=== PATIENT | male | born 1980 | race Two or more races ===

== ENCOUNTER → 2022-07-04 15:39 | Outpatient (CLI) | payer BC, SELFPAY ==
--- NOTE | 2022-07-04 15:49 | ECG_ITS ---
APPROVED REPORT Exam: Resting ECG HR:67 bpm ECG Measurements Heart Rate 67 AXES MN 165 P 29 QRSd 82 QRS 14 QT 378 T 13 QTc 394 Conclusion SINUS RHYTHM NORMAL ECG UNCONFIRMED REPORT Electronically signed by : Azar Roblero MD 07/04/2022 17:56:29
--- NOTE | 2022-07-04 16:29 | XR_ITS ---
PROCEDURE INFORMATION: Exam: XR Chest Exam date and time: 07/04/2022 4:44 PM Age: 41 years old Clinical indication: Cough; Additional info: Pre-op testing -- cough TECHNIQUE: Imaging protocol: Radiologic exam of the chest. Views: 2 views. COMPARISON: No relevant prior studies available. FINDINGS: Lungs: Hypoaeration of the lungs which are clear for the degree of inspiration. Pleural spaces: No pleural effusion. No pneumothorax. Heart/Mediastinum: Cardiomediastinal silhouette is normal. Bones/joints: No acute abnormality. IMPRESSION: No acute cardiopulmonary disease.
--- NOTE | 2022-07-04 16:29 | XR_ITS ---
PROCEDURE INFORMATION: Exam: XR Right Foot Complete; Alignment Exam date and time: 07/04/2022 4:44 PM Age: 41 years old Clinical indication: Pain; Foot; Right; Additional info: Foot pain TECHNIQUE: Imaging protocol: Radiologic exam of the right foot. Views: 3 or more views. COMPARISON: No relevant prior studies available. FINDINGS: Bones/joints: No acute fracture or dislocation. Hallux valgus. Plantar enthesophyte noted. Soft tissues: Normal. IMPRESSION: No acute osseous abnormality.
[2022-07-04 17:10] LABS: Basophils # 0.1 K/mm3 (0-0.2); Eosinophils # 0.1 K/mm3 (0.0-0.4); Hematocrit 37.3 % (42.0-52.0); Hemoglobin 12.1 g/dL (14.1-18.0); Lymphocytes # 1.9 K/mm3 (0.7-4.5); Lymphocytes % 32.9 % (10-50); Mean Corpuscular HGB Conc 32.4 g/dL (31.8-35.4); Mean Corpuscular Volume 86.2 fl (80-94); Mean Platelet Volume 7.5 fl (7.4-10.4); Monocytes # 0.3 K/mm3 (0.1-1.0); Monocytes % 4.5 % (1.7-9.3); Neutrophils # 3.5 K/mm3 (1.8-7.8); Neutrophils % 60.6 % (37.0-80.0); Platelet Count 381 K/mm3 (142-424); Red Blood Count 4.32 M/mm3 (4.60-6.20); Red Cell Distribution Width 18.2 % (11.5-17.5); White Blood Count 5.8 K/mm3 (4.8-10.8)
[2022-07-04 17:48] LABS: Alanine Aminotransferase 47 U/L (12-78); Albumin Level 4.4 g/dl (3.5-5.0); Albumin/Globulin Ratio 1.5 (1.1-1.8); Alkaline Phosphatase 70 U/L (38-126); Aspartate Amino Transferase 46 U/L (17-59); Bilirubin,Total 0.3 mg/dl (0.2-1.3); Blood Urea Nitrogen 10 mg/dl (9-20); Calcium 8.5 mg/dl (8.4-10.2); Carbon Dioxide 25 mmol/L (22.0-30.0); Chloride 108 mmol/L (98-107); Estimated Glomerular Filt Rate 148 ml/min (>60); GFR (African American) 179 ML/MIN (>60); Globulin 2.9 g/dL (1.3-3.2); Glucose 92 mg/dl (74-100); Potassium 4.1 mmoL/L (3.5-5.1); Total Protein,Serum 7.3 g/dl (6.3-8.2)
[2022-07-04 18:59] LABS: Anion Gap 7.1 mEq/L (5-15); Sodium 136 mmol/L (136-145)
[2022-07-16 19:15] LABS: 1,25 Dihydroxy Vitamin D 61 pg/mL (.); 1,25-Dihydroxy, Vitamin D-2 52 pg/mL (.); 1,25-Dihydroxy, Vitamin D-3 <10 pg/mL (.)
== END ==
PROVIDERS: Visit Provider Podiatrist
DX: Z01.818 Encounter for other preprocedural examination (principal); M79.671 Pain in right foot
CPT/HCPCS: 36415; 71046; 73630; 80053; 82652; 85025; 93005

== ENCOUNTER 2022-07-27 06:04 | Day surgery (SDC) | payer BC, SELFPAY ==
[2022-07-27] VITALS (10 sets, daily range): BP systolic 128–165; BP diastolic 74–95; PULSE 65–78; RESP 16–18; TEMP 36.4–43; O2SAT 99–100; BMI 35.5
[2022-07-27 06:25] LABS: Urine Pregnancy, HCG Qual. Negative (Negative)
--- NOTE | 2022-07-27 10:08 | P.PN_ITS ---
[facility] Disclaimer: The information contained in this section may have been updated after the patient was seen, as this information can be updated by other users. Surgical History History of bilateral tubal ligation History of section Family History Other No significant family history Social History Smoking Status: Never smoker alcohol intake: never substance use type: denies use current occupational status: employed Travel in the last 8 weeks: None [facility] [place] Anesthesia Checklist Patient Identification Patient Identification: Arm Band Structural Data Admitted From: Home Planned Operative Procedure/s: Right Lapidus Bunionectomy, Hammertoe Repair Consent for Planned Operative Procedure(s) Verified: Yes Verified Documents: Surgical Consent and History and Physical NPO Status Verified Time NPO: 00:00 Additional verifications Anesthesia Reactions: No Hx Blood Transfusions: No Blood Transfusion Reaction: No Airway Assessment C-Spine Mobility Assessed: Yes TMJ Mobility Assessed: Yes Dentition: Good Dentition Neurological Assessment Level of Consciousness: Awake and Alert Anesthesia Plan Anesthesia Risk discussed: Yes Anesthesia Plan: Verified ASA Class: II Anesthesia Type: General w/block (Right Popliteal/Saphenous Nerve Block)
--- NOTE | 2022-07-27 10:54 | SUR.PREOP ---
O2 2L/NC applied after Iv sadation per Anesthesia for nerve block. Sat: 96% on 2L.
--- NOTE | 2022-07-27 13:03 | EXP.OP.NOTE ---
Date of procedure: 07/27/22 Pre-op Diagnosis:: Hallux valgus deformity right foot; 2nd hammertoe right foot; painful; unresolved with conservative measures. Post-op Diagnosis:: same Procedure performed:: Lapidus fusion; Bunionectomy right foot; 2nd hammertoe correction right foot Surgeon:: Cesar Spence DPM PUBLIC INFORMATION DIRECTOR:: Joeelizabeth Munoz Anesthesia: GETA and other (popliteal) Estimated blood loss (mL): 3 Operative findings:: expected Operative note:: Pre-op: The patient has tried modification of shoe gear, taping, strapping, inserts, ice, elevation, and NSAIDs. she also had injections and physical therapy. After a long discussion with the patient in regards to the conservative versus surgical treatment for the arthritic deformity, the patient has elected to proceed with surgery because they have failed conservative treatment and continue to have pain and worsening symptoms affecting daily activities. The patient has been instructed on the planned procedure, all risk versus benefits of the procedure discussed. These include but are not limited to: bleeding, infection, nerve and blood vessel damage, need for further surgery, delay in healing of soft tissue or bone, failure of bones to heal, non-union, mal-union, failure of the implant, prolonged pain and recovery, CPRS/RSD, DVT and anesthetic complications. No guarantees were given. All questions fully answered. The patient verbalized understanding and agreed to proceed with surgery. Written consent was obtained. Necessary labs and pre-op testing ordered: CBC, CMP, CXR, EKG, covid. Patient will need medical clearance. Rx for Percocet and Phenergan, post operatively, sent to pharmacy electronically. Patient was seen in the preop holding area. Discussion with the patient to confirm the planned procedure was performed and this foot was signed. All questions were answered to the patient's satisfaction. Patient was then evaluated by anesthesia department. Patient was wheeled to the operative room and placed on the operating table in the supine position. The operative site was clearly marked and then prepped and draped in the usual aseptic manner. Timeout was performed in the room and we confirmed the planned procedure and the patient and we all were in agreement. The attention was directed to the patient's surgical foot and Esmarch bandage used to extended patient's foot and ankle and the tourniquet inflated to 250 mils mercury about the malleoli. A dorsal linear longitudinal incision was made from the metatarsal cuneiform joint following and medial with the extensor hallucis longus tendon to the dorsal aspect of the proximal hallux. Incision was deepened to subcutaneous tissues being careful to preserve protect vital neurovascular structures and bleeders cauterized with the Bovie as necessary. Attention was directed to the first metatarsal phalangeal joint where a dorsal linear longitudinal capsulotomy was made medial and parallel with the extensor hallucis longus tendon. The medial eminence and dorsal head of the first metatarsal were remodeled with sagittal bone saw. At this point blunt and sharp dissection was carried down to the first interspace and the fibular sesamoid was freed of soft tissue attachments and performed a lateral capsulotomy. There was good range of motion noted at the first MPJ at this level. Attention now was directed to the metatarsal cuneiform joint which was dissected down to the joint capsule and freed of soft tissue attachments. Sagittal bone saw was used to resect portion of the metatarsal cunifeiform joint carlitage and bone in the multiple planes. At this point the base of the metatarsal and the cuneiform were placed in proximity to each other with bleeding sides in a corrected position and fixation was accomplished using a cannulated screw and a speed staple. There is good alignment noted for the entire correction of the procedure and it was deemed to be appropriate for
--- NOTE | 2022-07-27 13:06 | P.PNANES_ITS ---
[facility] Anesthesia Record Part I Anesthesia Record I Intake, IV Amount: 1,200 Estimated blood loss (mL): 5 Urine output (mL): 0 Blood Products used (#): none Blood Pressure: 134/74 SaO2: 100 Pulse Rate: 78 Respiratory Rate: 16 Temperature: 98.6 F Patient is:: Drowsy and Stable Stable to PACU at:: 13:05
[2022-07-30 07:38] VITALS: BP 135/75; PULSE 65; TEMP 36.1
--- NOTE | 2022-07-30 07:38 | P.PNANES_ITS ---
[facility] Anesthesia Record Part II Anesthesia Record Part II Discharge Time: 13:35 Destination: Surgical Day Care (OP Surgery) PACU nurse assessment reviewed?: Yes Patient Condition:: Good Anesthesia Complications:: None Swallowing reflex intact?: Yes Cyanosis?: No Blood Pressure: 135/75 Pulse Rate: 65 Temperature: 97 F Mental Status: Alert & Oriented Pain level:: 0 Nausea and/or vomitting:: None Intake, IV Amount: 0
== END 2022-07-27 14:20 | disposition home or self-care (01) ==
PROVIDERS: Visit Provider Podiatrist
PROC: (CPT 28297; principal; 2022-07-27 11:00)
DX: M20.11 Hallux valgus (acquired), right foot (principal); M20.41 Other hammer toe(s) (acquired), right foot
CPT/HCPCS: 28297; 28285; 81025; 96374; C1713; J2405